=== PATIENT | male | born 1950 | race Caucasian/White ===

== ENCOUNTER 2018-06-13 16:38 | Emergency (ER) | payer MEDICARE, MEDICAID ==
[~2018-06-13] VITALS: Ht 160 cm; Wt 81.8 kg
[~2018-06-13 16:38] MED LIST: CIPRO 500MG TA500 MG PO; COUMADIN3 MG PO; CRESTOR5 MG PO; FUROSEMIDE; LASIX; LASIX 20MG TABL20 MG PO; LORTAB 5/500 501 TAB PO; NAPROSYN500 MG PO; NO HOME MEDICATIONS; OMEGA 31000 MG; PERCOCET 325 MG1 TA2 PO; PRILOSEC 20MG20 MG PO; PRILOTC; PROZAC 20MG20 MG PO; SEPTRA DS 8001 TAB PO; VIT D; VITAMIN B12 PO; VITAMIN B12500 MCG PO; WELLBUTRIN SR150 M1 PO; WELLBUTRIN XL150 MG PO; ZESTRIL 20MG TA20 MG PO; ZOCOR 20MG20 MG PO; [UNRECOGNIZED DRUG - REMARK]
[2018-06-13 16:40] VITALS: TEMP 97.4
[2018-06-13 17:05] LABS: COLLECTION METHOD CLEAN CATCH
[2018-06-13 17:11] LABS: MUCOUS Present /lpf; PH 6 (5-8); SQUAMOUS EPITHELIAL 0-2 /hpf; URINE APPEARANCE Clear; URINE BACTERIA None Seen /hpf; URINE BILIRUBIN Negative (NEGATIVE); URINE BLOOD Negative (NEGATIVE); URINE COLOR Yellow; URINE GLUCOSE Negative (NEGATIVE); URINE KETONE Negative (NEGATIVE); URINE LEUKOCYTE ESTERASE Negative (NEGATIVE); URINE NITRATE Negative (NEGATIVE); URINE PROTEIN(semi-quant) 1+ (NEGATIVE); URINE RBC 0-2 /hpf; URINE UROBILINOGEN >=4.0 mg/dL (NEGATIVE)
[2018-06-13 17:19] LABS: TRICYCLIC ANTIDEPRESS URINE NEGATIVE
[2018-06-13 17:23] LABS: BASO % 0.7 % (0.0-2.0); EOS # 0.2 (0.0-0.7); EOS % 2.5 % (0-4.0); GRAN # 2.9 (1.4-6.5); GRAN % 48.1 % (42.2-75.2); HEMATOCRIT 39.5 % (42.0-52.0); HEMOGLOBIN 13.1 g/dl (13.5-18.0); LYMPH # 2.3 (1.2-3.4); LYMPH % 36.9 % (20.0-51.0); MEAN CELL VOLUME 86 fl (80.0-100.0); MEAN CORPUSCULAR HEMOGLOBIN 29 pg (27.0-31.0); MEAN CORPUSCULAR HGB CONC 33 g/dl (33.0-37.0); MEAN PLATELET VOLUME 9.7 fl (7.4-10.4); MONO # 0.7 (0.1-0.6); MONO % 11.6 % (1.7-9.3); PLATELET COUNT 182 K/mm3 (130-400); RED BLOOD COUNT 4.58 M/mm3 (4.20-5.60); REDCELL DISTRIBUTION WIDTH-CV 14.8 % (11.5-14.5)
[2018-06-13 17:39] LABS: ALANINE AMINOTRANSFERASE 25 U/L (21-72); ALBUMIN 3.9 gm/dL (3.5-5.0); ALKALINE PHOSPHATASE 86 U/L (50-136); ANION GAP 9 mmol/L (7-16); AST,SGOT 29 U/L (15-37); BILIRUBIN,TOTAL 0.7 mg/dL (0.0-1.0); BLOOD UREA NITROGEN 19 mg/dL (9-20); CALCIUM 9.1 mg/dL (8.4-10.2); CARBON DIOXIDE 28 mmol/L (22-30); CHLORIDE 102 mmol/L (98-107); CREATININE, serum 1.55 mg/dL (0.66-1.25); GLUCOSE 104 mg/dL (74-106); SODIUM 139 mmol/L (137-145); TOTAL PROTEIN 7.3 gm/dL (6.4-8.2)
[2018-06-13 17:41] LABS: ACETAMINOPHEN < 10 ug/mL (10-30); ALCOHOL(ethanol),MEDICAL < 10 mg/dL; SALICYLATE < 1.0 mg/dL
[2018-06-14 03:05] VITALS: BP 120/74; PULSE 78
== END 2018-06-14 03:06 ==
LOC: COL.ER 16:38
PROVIDERS: Emergency Medicine
DX: T48.3X2A Poisoning by antitussives, intentional self-harm, initial encounter (principal); R45.851 Suicidal ideations; F32.9 Major depressive disorder, single episode, unspecified; Z79.01 Long term (current) use of anticoagulants

== ENCOUNTER 2018-06-24 13:17 | Emergency (ER) | payer MEDICARE, MEDICAID ==
[~2018-06-24] VITALS: Ht 63 cm; Wt 84.1 kg
[2018-06-24 13:18] VITALS: BP 105/68; TEMP 97.6
[2018-06-24 15:43] VITALS: PULSE 95
== END 2018-06-24 15:44 | disposition home or self-care (01) ==
LOC: COL.ER 13:17
DX: S00.03XA Contusion of scalp, initial encounter (principal); I10 Essential (primary) hypertension; K21.9 Gastro-esophageal reflux disease without esophagitis; E78.5 Hyperlipidemia, unspecified; F32.9 Major depressive disorder, single episode, unspecified; Z98.890 Other specified postprocedural states; W11.XXXA Fall on and from ladder, initial encounter; Y92.009 Unspecified place in unspecified non-institutional (private) residence as the place of occurrence of the external cause

== ENCOUNTER 2020-05-15 06:48 | Emergency (ER) | payer MEDICARE, MEDICAID ==
[~2020-05-15] VITALS: Ht 160 cm; Wt 86.4 kg
[2020-05-15 07:45] LABS: BASO # 0.1 (0.0-0.2); BASO % 0.7 % (0.0-2.0); EOS # 0.3 (0.0-0.7); EOS % 3.9 % (0-4.0); GRAN # 3.1 (1.4-6.5); GRAN % 44.9 % (42.2-75.2); HEMATOCRIT 40.3 % (42.0-52.0); HEMOGLOBIN 13.3 g/dl (13.5-18.0); LYMPH # 2.5 (1.2-3.4); LYMPH % 36.1 % (20.0-51.0); MEAN CELL VOLUME 89 fl (80.0-100.0); MEAN CORPUSCULAR HEMOGLOBIN 29 pg (27.0-31.0); MEAN CORPUSCULAR HGB CONC 33 g/dl (33.0-37.0); MEAN PLATELET VOLUME 9.5 fl (7.4-10.4); MONO % 13.8 % (1.7-9.3); PLATELET COUNT 148 K/mm3 (130-400); RED BLOOD COUNT 4.52 M/mm3 (4.20-5.60)
[2020-05-15 07:53] LABS: ALBUMIN 4.3 gm/dL (3.5-5.0); BILIRUBIN,TOTAL 0.8 mg/dL (0.0-1.0); CALCIUM 8.9 mg/dL (8.4-10.2); CREATININE, serum 1.78 (0.66-1.25); POTASSIUM 4.3 mmol/L (3.4-5.0); TOTAL PROTEIN 7.9 gm/dL (6.4-8.2)
[2020-05-15] MEDS ORDERED: PRINIVIL10 MG PO (08:04)
[2020-05-15] MEDS ORDERED: ELIQUIS 5MG PO ×2 (09:06→09:26)
[2020-05-15 09:25] VITALS: BP 114/72; PULSE 95; TEMP 98
== END 2020-05-15 09:39 | disposition home or self-care (01) ==
LOC: COL.ER 06:48
PROVIDERS: Emergency Medicine
DX: I82.431 Acute embolism and thrombosis of right popliteal vein (principal); I82.411 Acute embolism and thrombosis of right femoral vein; I10 Essential (primary) hypertension; F17.210 Nicotine dependence, cigarettes, uncomplicated; Z79.01 Long term (current) use of anticoagulants

== ENCOUNTER → 2021-07-31 | Outpatient (CLI) | payer MEDICARE, MEDICAID ==
[~2021-07-31] MED LIST changes: +ELIQUIS 5MG PO; +PRINIVIL10 MG PO
== END ==
LOC: COL.RAD 09:00
DX: Z53.9 Procedure and treatment not carried out, unspecified reason (principal)

== ENCOUNTER 2021-10-30 14:32 | Observation (INO) | payer MEDICARE, MEDICAID ==
[~2021-10-30] VITALS: Ht 162.6 cm; Wt 90.9 kg
[2021-10-30 16:03] LABS: BASO # 0.1 K/mm3 (0.0-0.2); EOS # 0.2 K/mm3 (0.0-0.7); EOS % 3.7 % (0.0-4.0); GRAN # 2.9 K/mm3 (1.4-6.5); GRAN % 48.7 % (42.2-75.2); HEMOGLOBIN 13.4 g/dl (13.5-18.0); LYMPH # 1.8 K/mm3 (1.2-3.4); LYMPH % 30.7 % (20.0-51.0); MEAN CELL VOLUME 92 fl (80.0-100.0); MEAN CORPUSCULAR HEMOGLOBIN 29 pg (27-31); MEAN CORPUSCULAR HGB CONC 32 g/dl (33.0-37.0); MEAN PLATELET VOLUME 9.5 fl (7.4-10.4); MONO # 0.9 K/mm3 (0.1-0.6); MONO % 15.4 % (1.7-9.3); PLATELET COUNT 166 K/mm3 (130-400); RED BLOOD COUNT 4.58 M/mm3 (4.20-5.60); REDCELL DISTRIBUTION WIDTH-CV 15.1 % (11.5-14.5)
[2021-10-30 16:21] LABS: ALBUMIN 3.8 gm/dL (3.4-4.8); BILIRUBIN,TOTAL 0.6 mg/dL (0.2-1.2); CREATININE, serum 1.56 mg/dL (0.72-1.25); POTASSIUM 4.6 mmol/L (3.5-4.5); TOTAL PROTEIN 7.3 gm/dL (6.2-8.1)
[2021-10-30 16:40] LABS: TROPONIN-I 0.056 ng/mL (0.00-0.033)
[2021-10-30] MEDS ORDERED: WELLBUTRIN XL300 M1 PO (19:22)
[2021-10-30] MEDS ORDERED: LASIX 20MG TABL20 MG PO (19:23)
[2021-10-30] MEDS ORDERED: ASPIRIN 32325 MG/TA1 PO (19:23)
[2021-10-30] MEDS ORDERED: ZOCOR 40MG40 MG PO (19:23)
[2021-10-30] MEDS ORDERED: PRINIVIL10 MG PO (19:23)
[2021-10-30] MEDS ORDERED: INDERAL 10MG10 MG (19:24)
[2021-10-30 22:45] VITALS: BP 109/59; PULSE 80; TEMP 98.5
[2021-10-30] MEDS ORDERED: XALATAN EYE DROPS OU (23:14)
[2021-10-31 03:16] VITALS: BP 107/56; PULSE 92; TEMP 97.9
--- NOTE | 2021-10-31 07:00 | NUR ---
PT ARRIVED TO MEDICAL UNIT AT 2235HRS. PT ALERT AND ORIENTED X 4 AND ABLE TO MAKE NEEDS KNOWN. PT DENIES PAIN, PALPITATIONS, SOB OR DIZZINESS. PT ON RA. VS WNL. HRR. TELEMETRY IN PLACE. LS CTA. BLE REDDENED WITH PITTING EDEMA. HEELS/FEET DRY. PT RESTING IN BED DRIFTING OFF TO SLEEP. PT STATES HE HAS NO OTHER NEEDS AT THIS TIME. CALL LIGHT WITHIN REACH.
[2021-10-31 07:45] LABS: BASO % 0.8 % (0.0-2.0); EOS # 0.2 K/mm3 (0.0-0.7); EOS % 4.2 % (0.0-4.0); GRAN # 2.2 K/mm3 (1.4-6.5); GRAN % 42.4 % (42.2-75.2); HEMATOCRIT 37.2 % (42.0-52.0); HEMOGLOBIN 12.2 g/dl (13.5-18.0); LYMPH % 38.2 % (20.0-51.0); MEAN CELL VOLUME 90 fl (80.0-100.0); MEAN CORPUSCULAR HEMOGLOBIN 30 pg (27-31); MEAN CORPUSCULAR HGB CONC 33 g/dl (33.0-37.0); MEAN PLATELET VOLUME 9.7 fl (7.4-10.4); MONO # 0.7 K/mm3 (0.1-0.6); PLATELET COUNT 158 K/mm3 (130-400); RED BLOOD COUNT 4.12 M/mm3 (4.20-5.60)
[2021-10-31 08:03] LABS: C-REACTIVE PROTEIN 3.31 mg/dL (0.00-0.50); CALCIUM 8.2 mg/dL (8.4-10.2); CREATININE, serum 1.42 mg/dL (0.72-1.25); POTASSIUM 4.3 mmol/L (3.5-4.5)
[2021-10-31 08:06] VITALS: BP 120/57; PULSE 86; TEMP 98.6
[2021-10-31 08:34] LABS: TROPONIN-I 0.052 ng/mL (0.00-0.033)
[2021-10-31] MEDS ORDERED: ASPIRIN 81M81 MG/TA2 PO (09:28)
[2021-10-31] MEDS ORDERED: PLAVIX 75MG TAB75 MG PO (09:29)
--- NOTE | 2021-10-31 10:26 | NUR ---
Patient informed hospitalist that he was ready to discharge. All medications administered as scheduled. This RN went over all discharge instructions and provided education on the tests that were recommended for the patient. IV and telemetry removed.
== END 2021-10-31 10:25 | disposition home or self-care (01) ==
LOC: COL.ER 14:32 → MEDICAL 19:46
PROVIDERS: Emergency Medicine; Nurse Practitioner Family; ADMIT Internal Medicine
DX: H53.2 Diplopia (principal); R79.89 Other specified abnormal findings of blood chemistry; R60.0 Localized edema; I12.9 Hypertensive chronic kidney disease with stage 1 through stage 4 chronic kidney disease, or unspecified chronic kidney disease; N18.9 Chronic kidney disease, unspecified; D63.1 Anemia in chronic kidney disease; E78.5 Hyperlipidemia, unspecified; E78.00 Pure hypercholesterolemia, unspecified; C88.0 Waldenstrom macroglobulinemia; K21.9 Gastro-esophageal reflux disease without esophagitis; F32.A Depression, unspecified; Z86.718 Personal history of other venous thrombosis and embolism; Z79.82 Long term (current) use of aspirin; Z79.899 Other long term (current) drug therapy; Z87.891 Personal history of nicotine dependence
CPT/HCPCS: G0378; J1650; J2405; J7030

== ENCOUNTER 2022-06-18 20:20 | Emergency (ER) | payer MEDICARE, MEDICAID ==
[~2022-06-18] VITALS: Ht 162.6 cm; Wt 86.4 kg
[~2022-06-18 20:20] MED LIST changes: +ASPIRIN 32325 MG/TA1 PO; +ASPIRIN 81M81 MG/TA2 PO; +INDERAL 10MG10 MG; +PLAVIX 75MG TAB75 MG PO; +WELLBUTRIN XL300 M1 PO; +XALATAN EYE DROPS OU; +ZOCOR 40MG40 MG PO
[2022-06-18 20:37] VITALS: TEMP 97.8
[2022-06-18 21:53] LABS: BASO % 0.5 % (0.0-2.0); EOS # 0.2 K/mm3 (0.0-0.7); EOS % 3.4 % (0.0-4.0); GRAN # 2.2 K/mm3 (1.4-6.5); HEMATOCRIT 44.1 % (42.0-52.0); HEMOGLOBIN 14.3 g/dl (13.5-18.0); LYMPH # 2.6 K/mm3 (1.2-3.4); LYMPH % 44.4 % (20.0-51.0); MEAN CELL VOLUME 90 fl (80.0-100.0); MEAN CORPUSCULAR HEMOGLOBIN 29 pg (27-31); MEAN CORPUSCULAR HGB CONC 32 g/dl (33.0-37.0); MEAN PLATELET VOLUME 9.9 fl (7.4-10.4); MONO # 0.9 K/mm3 (0.1-0.6); MONO % 14.5 % (1.7-9.3); PLATELET COUNT 150 K/mm3 (130-400); REDCELL DISTRIBUTION WIDTH-CV 14.4 % (11.5-14.5)
[2022-06-18 22:14] LABS: ALBUMIN 3.8 gm/dL (3.4-4.8); BILIRUBIN,TOTAL 0.6 mg/dL (0.2-1.2); C-REACTIVE PROTEIN 0.59 mg/dL (0.00-0.50); CALCIUM 9.4 mg/dL (8.4-10.2); CREATININE, serum 1.59 mg/dL (0.72-1.25); POTASSIUM 4.2 mmol/L (3.5-4.5); TOTAL PROTEIN 7.2 gm/dL (6.2-8.1)
[2022-06-18 22:16] LABS: COLLECTION METHOD CLEAN CATCH
[2022-06-18 22:27] LABS: MUCOUS Present (NOT PRESENT); SQUAMOUS EPITHELIAL 0-2 /hpf (0-10); URINE APPEARANCE Clear (CLEAR/HAZY); URINE BACTERIA None Seen /hpf (NONE SEEN); URINE COLOR Yellow (YELLOW)
[2022-06-18 22:28] LABS: URINE BLOOD Negative (NEGATIVE); URINE GLUCOSE Negative (NEGATIVE); URINE KETONE Negative (NEGATIVE); URINE NITRATE Negative (NEGATIVE); URINE PROTEIN(semi-quant) Negative (NEGATIVE)
[2022-06-18] MEDS ORDERED: FLOMAX 0.40.4 MG/CAP PO (23:00)
[2022-06-18 23:28] VITALS: BP 141/68; PULSE 74
== END 2022-06-18 23:28 | disposition home or self-care (01) ==
LOC: COL.ER 20:20
PROVIDERS: Emergency Medicine
DX: R39.198 Other difficulties with micturition (principal); Z87.891 Personal history of nicotine dependence
CPT/HCPCS: J7030

== ENCOUNTER 2022-06-28 00:11 | Emergency (ER) | payer MEDICARE, MEDICAID ==
[~2022-06-28] VITALS: Ht 162.6 cm; Wt 86.4 kg
[~2022-06-28 00:11] MED LIST changes: +FLOMAX 0.40.4 MG/CAP PO
[2022-06-28 00:13] VITALS: TEMP 97.9
[2022-06-28 00:47] LABS: COLLECTION METHOD IN
[2022-06-28 01:05] LABS: URINE APPEARANCE Clear (CLEAR/HAZY); URINE COLOR Straw (YELLOW)
[2022-06-28 01:06] LABS: PH 5.5 (5.0-8.5); SQUAMOUS EPITHELIAL None Seen /hpf (0-10); URINE BACTERIA None Seen /hpf (NONE SEEN); URINE BLOOD TRACE-INTACT (NEGATIVE); URINE GLUCOSE Negative (NEGATIVE); URINE KETONE Negative (NEGATIVE); URINE NITRATE Negative (NEGATIVE); URINE PROTEIN(semi-quant) Negative (NEGATIVE); URINE RBC 0-2 /hpf (0-2); URINE UROBILINOGEN 0.2 E.U/dL (0.2-1.0)
[2022-06-28] MEDS ORDERED: CIPRO 500MG TA500 MG PO (01:19)
[2022-06-28 01:39] VITALS: BP 143/94; PULSE 75
[2022-06-28] MEDS ORDERED: PYRIDIUM 100MG100 MG PO (01:48)
== END 2022-06-28 01:53 | disposition home or self-care (01) ==
LOC: COL.ER 00:11
PROVIDERS: Family Medicine
DX: R33.9 Retention of urine, unspecified (principal); Z87.891 Personal history of nicotine dependence

== ENCOUNTER 2022-06-29 20:36 | Emergency (ER) | payer MEDICARE, MEDICAID ==
[~2022-06-29] VITALS: Ht 162.6 cm; Wt 86.4 kg
[~2022-06-29 20:36] MED LIST changes: +PYRIDIUM 100MG100 MG PO
[2022-06-29 20:40] VITALS: BP 157/90; TEMP 98.2
[2022-06-29 22:24] VITALS: PULSE 82
== END 2022-06-29 22:24 | disposition home or self-care (01) ==
LOC: COL.ER 20:36
DX: T83.098A Other mechanical complication of other urinary catheter, initial encounter (principal); Z87.448 Personal history of other diseases of urinary system; Z79.899 Other long term (current) drug therapy